=== PATIENT | male | born 1950 | race Caucasian/White ===

== ENCOUNTER 2017-09-27 08:12 | Emergency (ER) | payer MEDICARE ==
[2017-09-27 08:40] VITALS: BP 124/89
--- NOTE | 2017-09-27 09:05 | UC ---
Throat Pain/Nasal Sohail HPI - HPI Summary HPI Summary: 10 sinus pressure and right ear pain, denies fever, cough is productive - History of Current Complaint Chief Complaint: UCGeneralIllness Stated Complaint: SORE THROAT, CONGESTION Time Seen by Provider: 09/27/17 08:50 Hx Obtained From: Patient Onset/Duration: Sudden Onset, Lasting Days Severity: Severe Pain Intensity: 8 Cough: Productive Associated Signs & Symptoms: Positive: Dysphagia, Sinus Discomfort, Nasal Discharge - Allergies/Home Medications Allergies/Adverse Reactions: Allergies Allergy/AdvReac Type Severity Reaction Status Date / Time banana AdvReac Vomiting Verified 09/27/17 08:35 broccoli AdvReac Vomiting Verified 09/27/17 08:35 cauliflower AdvReac Vomiting Verified 09/27/17 08:35 strawberry AdvReac Vomiting Verified 09/27/17 08:35 tomato AdvReac Vomiting Verified 09/27/17 08:35 watermelon AdvReac Vomiting Verified 09/27/17 08:35 Home Medications: Home Medications Cetirizine* [ZyrTEC 10 MG TAB*] 10 mg PO DAILY 09/27/17 [History Confirmed 09/27] Naproxen Sodium 440 mg PO QAM 09/27/17 [History Confirmed 09/27/17] PMH/Surg Hx/FS Hx/Imm Hx Previously Healthy: Yes - Surgical History Surgical History: Yes Surgery Procedure, Year, and Place: Right TKA, 2016, [facility]; [facility] X2. right knee arthroscopy - Family History Known Family History: Positive: Cardiac Disease, Hypertension - Social History Alcohol Use: Rare Alcohol Amount: 3 PER WEEK Substance Use Type: None Smoking Status (MU): Current Some Day Smoker Type: Cigars Amount Used/How Often: SMOKED IN EARLY 20'S FOR 2 YEARS Have You Smoked in the Last Year: No - Immunization History Most Recent Influenza Vaccination: 2014 Most Recent Tetanus Shot: 2007 Most Recent Pneumonia Vaccination: HAS NOT HAD Review of Systems Constitutional: Negative Skin: Negative Eyes: Negative ENT: Sore Throat, Ear Ache Respiratory: Cough Cardiovascular: Negative Gastrointestinal: Negative Genitourinary: Negative Motor: Negative Neurovascular: Negative Musculoskeletal: Negative Neurological: Headache Psychological: Negative Is Patient Immunocompromised?: No All Other Systems Reviewed And Are Negative: Yes Physical Exam Triage Information Reviewed: Yes Appearance: Ill-Appearing, Pain Distress Vital Signs: Initial Vital Signs Temp 98.7 F 02/03/18 08:31 Pulse 92 09/27/17 08:31 Resp 16 09/27/17 08:31 BP 124/89 09/27/17 08:31 Pulse Ox 98 09/27/17 08:31 Vital Signs Reviewed: Yes Eyes: Positive: Conjunctiva Inflamed ENT: Positive: Pharyngeal erythema, Nasal congestion, Nasal drainage, TM bulging , TM dull - right Dental Exam: Normal Neck exam: Normal Neck: Positive: Supple, Nontender, No Lymphadenopathy Respiratory Exam: Normal Respiratory: Positive: Chest non-tender, Lungs clear, Normal breath sounds Cardiovascular Exam: Normal Cardiovascular: Positive: RRR, No Murmur, Pulses Normal Abdominal Exam: Normal Abdomen Description: Positive: Nontender, No Organomegaly, Soft Bowel Sounds: Positive: Present Musculoskeletal Exam: Normal Neurological Exam: Normal Psychological Exam: Normal Skin Exam: Normal Throat Pain/Nasal Course/Dx - Course Course Of Treatment: hx obtained, exam performed, meds reviewed, treated for sinusitis - Differential Dx/Diagnosis Provider Diagnoses: sinusitis. serous otitis media right Discharge - Discharge Plan Condition: Stable Disposition: HOME Prescriptions: Amoxicillin PO (*) [Amoxicillin 875 MG (*)] 875 mg PO BID #20 tab predniSONE TAB* [Deltasone TAB*] 40 mg PO DAILY #14 tab Patient Education Materials: Sinusitis (ED) Referrals: Mark Frost MD [Primary Care Provider] - Additional Instructions: 1. take the medication as prescribed. 2. Increase fluid intake and get plenty of rest 3. Ibuprofen and warm compresses to the sinuses for pain.
== END 2017-09-27 09:09 | disposition home or self-care (01) ==
LOC: UCCORT 08:12
DX: J32.9 Chronic sinusitis, unspecified (principal); H65.91 Unspecified nonsuppurative otitis media, right ear; Z72.89 Other problems related to lifestyle; Z72.0 Tobacco use
CPT/HCPCS: 99212; G0463

== ENCOUNTER 2019-08-27 07:45 | Inpatient (IN) | payer MEDICARE ==
[~2019-08-27 07:45] MED LIST: Buffered Lidocaine 1% SYRIN* 1 ML/SYRINGE INTRADERM ONE; Famotidine IV* 10 MG/ML 2 ML (20 mg) IV ONE; Gabapentin CAP(*) 400 MG PO ONE; Lactated Ringers 1000 ML Bag* 1,000 ML IV SCH; Tranexamic Acid 1,000 MG in NS 0.9% 50 ML* (outpatient use) IV SCH
[2019-08-27] MEDS ORDERED: ceFAZolin 2 GM PREMIX in ORs 2 GM/50 ML BAG ONE (07:46)
[2019-08-27] MEDS ORDERED: Gabapentin CAP(*) 400 MG PO ONE (07:46)
[2019-08-27] MEDS ORDERED: Buffered Lidocaine 1% SYRIN* 1 ML/SYRINGE INTRADERM ONE (07:46)
[2019-08-27] MEDS ORDERED: Famotidine IV* 10 MG/ML 2 ML (20 mg) ONE (07:46)
--- OUTSIDE RECORDS SUMMARY | 2019-08-27 07:48 | XMS REPORT | Continuity of Care Document ---
:1950 External Reference #:[id number] Author Name Leighton Jansen MD (transmitted by agent of provider Leticia Faulkner) Address [address] [place] [id number] Care Team Providers Name Role Phone Mark Frost III, MD - Internal Care Team Information [employer] Medicine Oscar Schreiber MD - Surgery Care Team Information [employer] Tender Problems Active Problems Provider Date Allergic rhinitis Mark Frost M.D. Onset: 12/08/2012 Benign localized hyperplasia of prostate Mark Frost M.D. Onset: 2012 Social History Type Date Description Comments Sex Unknown ETOH Use Occasionally consumes alcohol Tobacco Use Start: Unknown End: Patient is a former Quit in his 20s; 1/2 Unknown smoker ppd for a few years (+) occ cigar Smoking Status Reviewed: 07/12/19 Patient is a former Quit in his 20s; 1/2 smoker ppd for a few years (+) occ cigar Exercise Exercises regularly Type/Frequency Allergies, Adverse Reactions, Alerts Active Allergies Reaction Severity Comments Date NKDA 05/10/2014 Hay Fever 04/18/2015 Medications Active Medications SIG Qnty Indications Ordering Provider Date Ranitidine 150 Maximum one by mouth Unknown Strength twice a day 150mg Tablets Naproxen 1 tablet by mouth Unknown 250mg Tablets twice a day as needed pain, with foods History Medications Sildenafil Citrate use daily as 10tabs Mark Frost, 05/04/2019 - needed M.D. 07/11/2019 100mg Tablets Tadalafil 1 by mouth every 90tabs Mark Frost, 02/04/2019 - 5mg Tablets day M.D. 07/11/2019 Medications Administered in Office Medication SIG Qnty Indications Ordering Provider Date Depomedrol 40MG Mckinley Mejia M.D. 05/05/2019 Injection Depomedrol 80MG MONI Bobby 02/27/2015 Injection Depomedrol 80MG Coral Chan, MONI 11/28/2014 Injection Depomedrol 80MG Mckinley Mejia M.D. 08/29/2014 Injection Depomedrol 80MG MONI Bobby 05/09/2014 Injection Depomedrol 80MG Mckinley Mejia M.D. 02/09/2014 Injection Immunizations CPT Code Status Date Vaccine Lot # [id number] Given 06/07/2019 Influenza Virus Vaccine, Quadrivalent, Split, Preservative Free [id number] Given 06/17/2016 Fluzone High Dose 24597 Given 06/16/2014 Flu Vaccine Split Virus Preservative Free For Indiv 3Yr Older 60569 Given 04/25/2013 Zoster (Zostavax) [id number] Given 09/03/2012 Fluzone Vaccine 17400 Given 11/10/2007 Tdap - Tetanus/Diptheria/Acellular Pertussis [id number] Given 07/31/1998 Td (History By Patient) Vital Signs Date Vital Result Comment 07/12/2019 3:23pm Height 70 inches 5'10" Weight 248.00 lb Heart Rate 67 /min BP Systolic 122 mmHg BP Diastolic 78 mmHg Respiratory Rate 16 /min Body Temperature 98.2 F Pain Level 6 BMI (Body Mass Index) 35.6 kg/m2 05/24/2019 9:40am Height 70 inches 5'10" Weight 240.00 lb Heart Rate 74 /min BP Systolic 122 mmHg BP Diastolic 84 mmHg Respiratory Rate 16 /min Body Temperature 97.4 F Pain Level 5 BMI (Body Mass Index) 34.4 kg/m2 Results Description No Information Available Procedures Date Code Description Status 05/05/2019 24170 Inject/Drain Joint/Bursa Major W/O US Completed 09/27/2014 04802058 Colonoscopy Completed Medical Devices Description No Information Available Encounters Type Date Location Provider Dx Diagnosis Office Visit 05/24/2019 [facility] Mckinley Mejia M.D. M17.12 Unilateral primary 9:30a at [place] osteoarthritis, left knee S83.232D Complex tear of medial mensc, current injury, l knee, subs Office Visit 05/05/2019 2:00p [facility] Mckinley Mejia, S83.232A Complex tear at [place] of medial mensc, current injury, l knee, init Assessments Date Code Description Provider 07/12/2019 M25.562 Pain in left knee Leighton Jansen MD 07/12/2019 M17.12 Unilateral primary osteoarthritis, left Leighton Jansen MD knee 07/12/2019 M17.12 Unilateral primary osteoarthritis, left Leighton Jansen MD knee 07/12/2019 M25.562 Pain in left knee Leighton Jansen MD 05/24/2019 M17.12 Unilateral primary osteoarthritis, left Mckinley Mejia M.D. knee 05/24/2019 S83.232D Complex tear of medial meniscus, current Mckinley Mejia M.D. injury, left knee, subsequent encounter 05/05/2019 S83.232A Complex tear of medial meniscus, current Mckinley Mejia M.D. injury, left knee, initial encounter Plan of Treatment Future Appointment(s):07/29/2019 2:20 pm - Mark Frost M.D. at [facility] Internal [facility] - [facility]07/12/2019 - Leighton Jansen, MDM25.562 Pain in left kneeM17.12 Unilateral primary osteoarthritis, left kneeFollow up:Follow up : to ORM17.12 Unilateral primary osteoarthritis, left kneeFollow up:Follow up : to ORM25.562 Pain in left knee Functional Status Description No Information Available Mental Status Description No Information Available Referrals Description No Information Available
--- OUTSIDE RECORDS SUMMARY | 2019-08-27 07:48 | XMS REPORT | Continuity of Care Document ---
:1950 External Reference #:[id number] Author Name Leighton Jansen MD (transmitted by agent of provider Estella Moore ) Address [address] [place] [phone] Care Team Providers Name Role Phone Mark Frost III, MD - Internal Care Team Information [employer] Supervisor [phone] Medicine Oscar Schreiber MD - Surgery Care Team Information [employer] Supervisor [phone] Problems Active Problems Provider Date Allergic rhinitis Mark Frost M.D. Onset: 12/08/2012 Benign localized hyperplasia of prostate Mark Frost M.D. Onset: 2012 Social History Type Date Description Comments Sex Unknown ETOH Use Occasionally consumes alcohol Tobacco Use Start: Unknown End: Patient is a former Quit in his 20s; 1/2 Unknown smoker ppd for a few years (+) occ cigar Smoking Status Reviewed: 08/23/19 Patient is a former Quit in his 20s; 1/2 smoker ppd for a few years (+) occ cigar Exercise Exercises regularly prior to L knee sx Type/Frequency worsening Allergies, Adverse Reactions, Alerts Active Allergies Reaction Severity Comments Date NKDA 05/10/2014 Hay Fever 04/18/2015 Medications Active Medications SIG Qnty Indications Ordering Provider Date Famotidine 1 by mouth 90tabs Mark Frost, 07/29/2019 40mg Tablets every day M.D. Naproxen 1 tablet by Unknown 250mg Tablets mouth twice a day as needed pain, with foods Viagra use as needed Unknown 100mg Tablets daily Acetaminophen 2 every 6 hours Unknown 500mg Tablets as needed Zyrtec Allergy Unknown Childrens 10mg Tablets Dispers History Medications Sildenafil Citrate use daily as 10tabs Mark LazarusJoe Frost, 05/04/2019 - needed Maribel 07/11/2019 100mg Tablets Medications Administered in Office Medication SIG Qnty Indications Ordering Provider Date Depomedrol 40MG Mckinley Mejia M.D. 05/05/2019 Injection Depomedrol 80MG HUBER BobbyC 02/27/2015 Injection Depomedrol 80MG MONI Bobby 11/28/2014 Injection Depomedrol 80MG Mckinley Mejia M.D. 08/29/2014 Injection Depomedrol 80MG MONI Bobby 05/09/2014 Injection Depomedrol 80MG Mckinley Mejia M.D. 02/09/2014 Injection Immunizations CPT Code Status Date Vaccine Reaction Lot # [id number] Given 08/04/2019 Tdap - No immediate reaction [id number] Tetanus/Diptheria/Acellular Pertussis 69649 Given 07/29/2019 Pneumococcal Conjugate shot tolerated well, no [id number] Vaccine 13 Valent For immediate reaction Intramuscular Use 28669 Given 06/07/2019 Influenza Virus Vaccine, Quadrivalent, Split, Preservative Free 64782 Given 06/17/2016 Fluzone High Dose 40351 Given 06/16/2014 Flu Vaccine Split Virus Preservative Free For Indiv 3Yr Older 07018 Given 04/25/2013 Zoster (Zostavax) Q2038 Given 09/03/2012 Fluzone Vaccine 15613 Given 11/10/2007 Tdap - [id number] Tetanus/Diptheria/Acellular Pertussis 94986 Given 07/31/1998 Td (History By Patient) Vital Signs Date Vital Result Comment 08/23/2019 3:19pm Height 70 inches 5'10" Weight 257.00 lb Heart Rate 76 /min BP Systolic 126 mmHg BP Diastolic 72 mmHg Respiratory Rate 12 /min Body Temperature 98.7 F Pain Level 7 BMI (Body Mass Index) 36.9 kg/m2 07/29/2019 2:30pm Height 70 inches 5'10" Weight 263.00 lb Heart Rate 96 /min BP Systolic Sitting 143 mmHg BP Diastolic Sitting 95 mmHg BP Systolic Recheck 149 mmHg BP Diastolic Recheck 90 mmHg BMI (Body Mass Index) 37.7 kg/m2 Results Test Acquired Date Facility Test Result H/L Range Note CBC Auto 08/23/2019 [facility] White Blood 8.6 10^3/uL Normal 3.5-10.[address] [place] [address] [phone] Red Blood Count 5.22 10^6/uL Normal 4.18-5.48 Hemoglobin 15.5 g/dL Normal 14.0-18.0 Hematocrit 45 % Normal 42-52 Mean Corpuscular Volume 86 fL Normal 80-94 Mean Corpuscular Hemoglobin 30 pg Normal 27-31 Mean Corpuscular HGB Conc 35 g/dL Normal 31-36 Red Cell Distribution Width 13 % Normal 10-15 Platelet Count 314 10^3/uL Normal 150-450 Mean Platelet Volume 8.9 fL Normal 7.4-10.4 Abs Neutrophils 4.8 10^3/uL Normal 1.5-7.7 Abs Lymphocytes 2.8 10^3/uL Normal 1.0-4.8 Abs Monocytes 0.6 10^3/uL Normal 0-0.8 Abs Eosinophils 0.3 10^3/uL Normal 0-0.6 Abs Basophils 0.0 10^3/uL Normal 0-0.2 Abs Nucleated RBC 0.1 10^3/uL Granulocyte % 55.4 % Lymphocyte % 33.0 % Monocyte % 7.2 % Eosinophil % 3.8 % Basophil % 0.6 % Nucleated Red Blood Cells % 0.7 Urinalysis Profile 08/23/2019 [facility] Urine Color Yellow [address] [place] [address] [phone] Urine Appearance Clear Urine Specific Lyerly 1.024 Normal 1.010-1.030 Urine pH 5.0 Normal 5-9 Urine Urobilinogen Positive Abnormal Negative Urine Ketones Negative Negative Urine Protein Negative Negative Urine Leukocytes Negative Negative Urine Blood Negative Negative Urine Nitrite Negative Negative Urine Bilirubin Negative Negative Urine Glucose Negative Negative Inr/Protime 08/23/2019 [facility] Inr 1.04 Normal 0.82-1.[address] [place] [address] [phone] Laboratory test 08/23/2019 [facility] Partial 35.7 Normal 26.0 -38.0 finding [address] [facility] [place] [address] Time PTT [phone] Comp Metabolic 08/23/2019 [facility] Sodium 138 mmol/L Normal 135-145 Panel [address] [place] [address] [phone] Potassium 4.2 mmol/L Normal 3.5-5.0 Chloride 103 mmol/L Normal 101-111 Co2 Carbon Dioxide 25 mmol/L Normal 22-32 Anion Gap 10 mmol/L Normal 2-11 Glucose 95 mg/dL Normal 70-100 Blood Urea Nitrogen 24 mg/dL Normal 6-24 Creatinine 0.85 mg/dL Normal 0.67-1.17 BUN/Creatinine Ratio 28.2 High 8-20 Calcium 9.8 mg/dL Normal 8.6-10.3 Total Protein 7.3 g/dL Normal 6.4-8.9 Albumin 4.7 g/dL Normal 3.2-5.2 Globulin 2.6 g/dL Normal 2-4 Albumin/Globulin Ratio 1.8 Normal 1-3 Total Bilirubin 0.80 mg/dL Normal 0.2-1.0 Alkaline Phosphatase 53 U/L Normal 34-104 Alt 41 U/L Normal 7-52 Ast 32 U/L Normal 13-39 Egfr Non- 89.4 >60 Egfr 108.1 >60 2 Lipid Profile 07/27/2019 [facility] Triglycerides 185 mg/dL 3 (Trig/Chol/HDL) [address] [place] [address] [phone] Cholesterol 177 mg/dL 4 HDL Cholesterol 36.4 mg/dL 5 LDL Cholesterol 104 mg/dL 6 Basic Metabolic 07/27/2019 [facility] Sodium 138 mmol/L Normal 135-145 Panel [address] [place] [address] [phone] Potassium 4.5 mmol/L Normal 3.5-5.0 Chloride 102 mmol/L Normal 101-111 Co2 Carbon Dioxide 27 mmol/L Normal 22-32 Anion Gap 9 mmol/L Normal 2-11 Glucose 155 mg/dL High 70-100 Blood Urea Nitrogen 19 mg/dL Normal 6-24 Creatinine 0.88 mg/dL Normal 0.67-1.17 BUN/Creatinine Ratio 21.6 High 8-20 Calcium 9.8 mg/dL Normal 8.6-10.3 Egfr Non- 85.9 >60 Egfr 103.9 >60 7 1 Standard intensity warfarin therapeutic range: 2.0-3.0 High intensity warfarin therapeutic range: 2.5-3.5 2 Because ethnic data is not always readily available, this report includes an eGFR for both -Americans and non- Americans. The National Kidney Disease Education Program (NKDEP) does not endorse the use of the MDRD equation for patients that are not between the ages of 18 and 70, are , have extremes of body size, muscle mass, or nutritional status, or are non- or non-. According to the National Kidney Foundation, irrespective of diagnosis, the stage of the disease is based on the level of kidney function: Stage Description GFR(mL/min/1.73 m(2)) 1 Kidney damage with normal or decreased GFR 90 2 Kidney damage with mild decrease in GFR 60-89 3 Moderate decrease in GFR 30-59 4 Severe decrease in GFR 15-29 5 Kidney failure <15 (or dialysis) 3 Desirable: <150 Borderline High: 150-199 High: 200-499 Very High: >500 4 Desirable: <200 Borderline High: 200-239 High: >239 5 Low: <40 Desirable: 40-60 High: >60 6 Desirable: <100 Near Optimal: 100-129 Borderline High: 130-159 High: 160-189 Very High: >189 7 Because ethnic data is not always readily available, this report includes an eGFR for both -Americans and non- Americans. The National Kidney Disease Education Program (NKDEP) does not endorse the use of the MDRD equation for patients that are not between the ages of 18 and 70, are , have extremes of body size, muscle mass, or nutritional status, or are non- or non-. According to the National Kidney Foundation, irrespective of diagnosis, the stage of the disease is based on the level of kidney function: Stage Description GFR(mL/min/1.73 m(2)) 1 Kidney damage with normal or decreased GFR 90 2 Kidney damage with mild decrease in GFR 60-89 3 Moderate decrease in GFR 30-59 4 Severe decrease in GFR 15-29 5 Kidney failure <15 (or dialysis) Procedures Date Code Description Status 07/29/2019 86963 EKG Tracing & Interpretation Completed 05/05/2019 89594 Inject/Drain Joint/Bursa Major W/O US Completed 09/27/2014 [id number] Colonoscopy Completed Medical Devices Description No Information Available Encounters Type Date Location Provider Dx Diagnosis Office Visit 05/24/2019 [facility] Mckinley Mejia M.D. M17.12 Unilateral primary 9:30a at [place] osteoarthritis, left knee S83.232D Complex tear of medial mensc, current injury, l knee, subs Office Visit 05/05/2019 2:00p [facility] Mckinley Mejia, S83.232A Complex tear at [place] Baldev.Viry of medial mensc, current injury, l knee, init Assessments Date Code Description Provider 08/23/2019 M17.12 Unilateral primary osteoarthritis, left Leighton Jansen MD knee 07/29/2019 Z00.00 Encounter for general adult medical Mark Frost M.D. examination without abnormal findings 07/29/2019 M17.12 Unilateral primary osteoarthritis, left Mark Frost M.D. knee 07/29/2019 Z96.651 Presence of right artificial knee joint Mark Frost M.D. 07/29/2019 J30.9 Allergic rhinitis, unspecified Mark Frost M.D. 07/29/2019 N40.1 Benign prostatic hyperplasia with lower Mark Frost M.D. urinary tract symptoms 07/29/2019 K21.9 Gastro-esophageal reflux disease without Mark Frost M.D. esophagitis 07/29/2019 Z23 Encounter for immunization Mark Frost M.D. 07/12/2019 M25.562 Pain in left knee Leighton Jansen MD 07/12/2019 M17.12 Unilateral primary osteoarthritis, left Leighton Jansen MD knee 07/12/2019 M17.12 Unilateral primary osteoarthritis, left Leighton Jansen MD knee 07/12/2019 M25.562 Pain in left knee Leighton Jansen MD 05/24/2019 M17.12 Unilateral primary osteoarthritis, left Mckinley Mejia M.D. knee 05/24/2019 S83.232D Complex tear of medial meniscus, anish Mejia M.D. injury, left knee, subsequent encounter 05/05/2019 S83.232A Complex tear of medial meniscus, current Dirk Roberto, M.D. injury, left knee, initial encounter Plan of Treatment Future Appointment(s):09/16/2019 8:15 am - Leighton Jansen MD at [facility] at Bammfz1208/27/2019 10:00 am - MONI Zabala at [facility] at Yzygpq4108/27/2019 10:00 am - Leighton Jansen MD at [facility] at Uspwob4208/23/2019 - Leighton Jansen, [facility]17.12 Unilateral primary osteoarthritis, left kneeFollow up:Follow up: to OR Functional Status Description No Information Available Mental Status Description No Information Available Referrals Description No Information Available
[2019-08-27] MEDS ORDERED: Midazolam* 1 MG/ML 5 ML VIAL (5 MG) ONE (09:04)
[2019-08-27] MEDS ORDERED: fentaNYL* 50 MCG/ML 2 ML VIAL (100 MCG VIAL) ONE ×2 (09:04→09:55)
[2019-08-27] MEDS ORDERED: Bupivacaine 0.25% EPI 200,000* 30 ML SDV ONE ×2 (09:41→10:41)
[2019-08-27] MEDS ORDERED: Propofol* 500 MG/50 ML BTL ONE (10:05)
[2019-08-27] MEDS ORDERED: ROPIVACAINE 5 MG/ML 30 ML BTL (0.5%) ONE (10:15)
[2019-08-27] MEDS ORDERED: Propofol* 10 MG/ML 20 ML BTL ONE (12:38)
[2019-08-27] MEDS ORDERED: fentaNYL* 50 MCG/ML 2 ML VIAL (100 MCG VIAL) IV PRN (13:07)
[2019-08-27] MEDS ORDERED: Naloxone* 0.4 MG/ML 1 ML VIAL IV PRN (13:07)
[2019-08-27] MEDS ORDERED: Ondansetron INJ* 2 MG/ML VIAL IV PRN ×2 (13:07→13:10)
[2019-08-27] MEDS ORDERED: traMADol TAB* 50 MG PO PRN (13:10)
[2019-08-27] MEDS ORDERED: oxyCODONE/Acetamin 5/325 MG* TAB PO PRN (13:10)
[2019-08-27] MEDS ORDERED: Morphine INJ* 2 MG/ML 1 ML SYRINGE (TWO MG - NEW SYRINGE VERSION) IV PRN (13:10)
[2019-08-27] MEDS ORDERED: diPHENhydraMINE PO* 25 MG PO PRN (13:10)
[2019-08-27] MEDS ORDERED: Temazepam CAP* 15 MG PO PRN (13:10)
[2019-08-27] MEDS ORDERED: Magnesium Hydroxide LIQ* 30 ML UDC PO PRN (13:10)
[2019-08-27] MEDS ORDERED: diPHENhydraMINE IV* 50 MG/ML 1 ml VIAL (BENADRYL) IV PRN (13:10)
[2019-08-27] MEDS ORDERED: Polyethylene Glycol 3350* 17 GM PACKET PO PRN (13:10)
[2019-08-27] MEDS ORDERED: Ondansetron ODT TAB* 4 MG PO PRN (13:10)
[2019-08-27] MEDS ORDERED: Pantoprazole TAB * 40 MG TAB PO PRN (13:21)
[2019-08-27] MEDS ORDERED: ceFAZolin 1 GM ADVAN(*) 1 GM in NS 0.9% 50 ML* 50 ML IVPB SCH (14:00)
[2019-08-27] MEDS: Lactated Ringers 1000 ML Bag* 1,000 ML IV SCH (14:43)
[2019-08-27] MEDS: oxyCODONE/Acetamin 5/325 MG* TAB PO PRN ×2 (15:12→21:15)
[2019-08-27] MEDS ORDERED: Morphine INJ* 2 MG/ML 1 ML SYRINGE (TWO MG - NEW SYRINGE VERSION) ONE (16:39)
[2019-08-27] MEDS: Cyclobenzaprine TAB* 10 MG PO PRN (16:41)
[2019-08-27] MEDS ORDERED: Morphine INJ* 2 MG/ML 1 ML SYRINGE (TWO MG - NEW SYRINGE VERSION) IV ONE (17:00)
[2019-08-27] MEDS: oxyCODONE TAB* 5 MG TAB PO PRN (17:19)
[2019-08-27] MEDS: ceFAZolin 1 GM ADVAN(*) 1 GM in NS 0.9% 50 ML* 50 ML IVPB SCH (18:23)
[2019-08-27] MEDS ORDERED: Ketorolac INJ* 30 MG/ML 1 ML VIAL IV PUSH ONE (18:31)
[2019-08-27] MEDS: Docusate CAP* 100 MG PO SCH (21:15)
[2019-08-27] MEDS: Magnesium Hydroxide LIQ* 30 ML UDC PO SCH (21:15)
[2019-08-27] MEDS: Morphine INJ* 4 MG/ML 1 ML SYRINGE (NEW SYRINGE VERSION) IV PRN (21:16)
[2019-08-27] MEDS: Acetaminophen TAB* 325 MG PO SCH (21:17)
[2019-08-28] MEDS: oxyCODONE TAB* 5 MG TAB PO PRN ×4 (01:10→21:05)
[2019-08-28] MEDS: Lactated Ringers 1000 ML Bag* 1,000 ML IV SCH (01:10)
[2019-08-28] MEDS: ceFAZolin 1 GM ADVAN(*) 1 GM in NS 0.9% 50 ML* 50 ML IVPB SCH ×2 (01:34→09:47)
[2019-08-28] MEDS: Acetaminophen TAB* 325 MG PO SCH ×3 (05:58→21:08)
[2019-08-28] MEDS: oxyCODONE/Acetamin 5/325 MG* TAB PO PRN ×3 (06:01→17:32)
[2019-08-28] MEDS: Cyclobenzaprine TAB* 10 MG PO PRN (06:01)
[2019-08-28 07:12] LABS: Hematocrit 38 % (42-52); Hemoglobin 13.2 g/dL (14.0-18.0); Mean Platelet Volume 8.9 fL (7.4-10.4); Platelet Count 263 10^3/uL (150-450)
[2019-08-28 07:26] LABS: BUN/Creatinine Ratio 24.7 (8-20); Calcium 8.6 mg/dL (8.6-10.3); EGFR African American 102.6 (>60); EGFR Non-African American 84.8 (>60); Potassium 3.9 mmol/L (3.5-5.0)
--- NOTE | 2019-08-28 08:26 | PN ---
Progress Note - Progress Note Date of Service: 08/28/19 SOAP: Subjective: Pt is doing well. Having pain but pain medication is helping. Denies F/C, CP/ SOB or calf pain Objective: PE- 69 y/o WDWN M NAD LLE- dressing c/d/i, able to DF/PF ankle, calf soft NT, +2 Dp pulse, SILT distally, brisk cap refill Vital Signs Temp Pulse Resp BP Pulse Ox 99.2 F 97 18 136/82 95 08/28/19 07:28 08/28/19 07:28 08/28/19 08:06 08/28/19 07:28 08/28/19 07:28 Laboratory Results - last 24 hr 08/28/19 08/28/19 06:30 06:30 Hgb 13.2 L Hct 38 L Plt Count 263 MPV 8.9 Sodium 134 L Potassium 3.9 Chloride 100 L Carbon Dioxide 26 Anion Gap 8 BUN 22 Creatinine 0.89 Est GFR ( Amer) 102.6 Est GFR (Non-Af Amer) 84.8 BUN/Creatinine Ratio 24.7 H Glucose 157 H Calcium 8.6 Assessment: POD 1 S/P Left total knee arthroplasty Plan: WBAT Cont pain control PT/OT Eliquis for dvt prophylaxis Possible DC tomorrow vs Friday depending on pain control and how therapy goes
[2019-08-28] MEDS: Morphine INJ* 4 MG/ML 1 ML SYRINGE (NEW SYRINGE VERSION) IV PRN (08:52)
[2019-08-28] MEDS: Apixaban* 2.5 MG TAB PO SCH ×2 (08:55→21:06)
[2019-08-28] MEDS: Magnesium Hydroxide LIQ* 30 ML UDC PO SCH ×2 (08:55→21:06)
[2019-08-28] MEDS: Vitamin THERAPEUTIC TAB PO SCH (08:55)
[2019-08-28] MEDS: Docusate CAP* 100 MG PO SCH ×2 (08:55→21:05)
[2019-08-28] MEDS: oxyCODONE SR TAB(*) 10 MG TAB.SR PO SCH ×2 (10:15→21:05)
--- NOTE | 2019-08-28 22:03 | OP ---
OPERATIVE REPORT: DATE OF OPERATION: 08/27/19 DATE OF : 50 SURGEON: Leighton Jansen MD CUE WORKER: VENANCIO Hua A physician assistant professor of life sciences was required for the length of the procedure for assistance with patient positi oning, retraction, and closure. NurseAnn also was assisting, second assist. ANESTHESIOLOGIST: Dr. Cheng Fields. ANESTHESIA: Epidural anesthesia, adductor canal block regional anesthesia, local anesthesia consisti ng of 60 cc of Marcaine 0.25% with epinephrine. PRE-OP DIAGNOSIS: Left knee osteoarthritis. POST-OP DIAGNOSIS: Left knee osteoarthritis. OPERATIVE PROCEDURE: Left total knee arthroplasty. ANTIBIOTICS: Ancef 2 g IV. IV FLUIDS: See Anesthesia note. URINE OUTPUT: See Anesthesia note. CHVW-LJ-FDMZ TIME: 138 minutes. TOURNIQUET TIME: 128 minutes at 300 mmHg, left thigh. SPECIMEN: Bone and articular cartilage, left knee. IMPLANTS: DePuy Adis and Adis Attune, cruciate retaining total knee arthroplasty, cemented. F emur size 8. Tibia size 7. Patella size 41 mm. Polyethylene insert size 8 mm. Palacos cement utili zed. ESTIMATED BLOOD LOSS: Minimal. COMPLICATIONS: None. INDICATIONS FOR PROCEDURE: The patient is a 69-year-old man, with a prior history, distant past of a right total knee arthroplasty, who presented to me as a referral from partner with left knee pain se condary to osteoarthritis mostly in the medial compartment. The patient had tried nonoperative manag ement and would like to proceed forward with operative management, knee arthroplasty surgery. Discussed risks and potential complications of surgery. DESCRIPTION OF PROCEDURE: In preoperative holding, the patient signed a written consent. Operative extremity was marked in preoperative holding. In preoperative holding and in the operating room, Anesthesia performed a variety of blocks. One of them was either an epidural or a spinal and the other a regional adductor canal block. The patient was brought back to the operating room and placed supine on the operating room table. A bump was placed under the left hemipelvis. A tourniquet was placed about the left proximal thigh. T he left lower extremity was prepped and draped. Surgical time-out was performed. Esmarch was applie d and the tourniquet was elevated to 300 mmHg. I should note that prior to the prep and drape, a bladder catheter, Good, was inserted. That was re moved at the conclusion of the procedure after the dressing was applied. After the tourniquet was elevated, the skin incision was made. Anterior longitudinal skin incision f rom 3 fingerbreadths proximal to the proximal pole of patella to the distal end of the tibial tubercl e. I made the skin incision slightly medial than I do typically slightly medial to the midline, to a void placing the incision directly through a small skin lesion, consistent with a psoriasis skin lesi on that the patient states he has had chronically. I changed knives and dissected down to the extensor mechanism. I used scissors to release a subcutan eous tissue superficial to the quadriceps tendon. I used feathering strokes to reveal nicely the ext ensor mechanism. I marked and then made by medial parapatellar arthrotomy incision. When the knee f lexed, I continued that down through the anterior horn of the medial meniscus. With the knee extended, I released capsule off the anterior aspect of the medial tibial plateau and l ateral tibial plateau with Bovie electrocautery. With an osteotomy, I released medial capsule off th e medial tibial plateau. Partially, I everted patella and removed much of the fat from the undersurf mehran of the patellar tendon. Released some lateral synovial fold adjacent to lateral patellofemoral l igament. I used Bovie electrocautery to release the synovium in the suprapatellar pouch. Significan t arthritic change noted about the medial compartment, full thickness loss of articular cartilage. N o large osteophytes encountered during this case. Everted patella and flexed the knee up to 90 degrees. Cut and then removed the ACL ligament. Marked the center spot of the femur and then reamed the femur with a drill. I irrigated the femoral canal and then aspirated. I placed my distal femoral cutting guide. I placed it to 5 degrees of valgus an d 9 mm of resection. I used an oscillating saw after having placed retractors. I then sized the femur. Sized it to a size 8. I placed 4-in-1 cutting block. Cut anteriorly with a n oscillating saw. Confirmed that that cut worked. It was flushed with the anterior aspect of the f emoral shaft, but there is absolutely no notching. I placed 2 additional screws through the 4-in-1 c utting guide and then made the other 3 cuts of the distal femur. I placed my tibial external alignment guide. Set it to 7 degrees of posterior slope cut centralized distally. Given the relatively well-aligned knee in the coronal plane on the preoperative imaging, I removed 6 mm off the low side on the medial tibial plateau. I pinned my cutting guide, confirmed it s orientation and then used an oscillating saw to cut off a bone block. I was careful not to cut too far posteriorly for neurovascular structures as well as the PCL. I would say the amount of tibia re moved was larger than normal especially on the lateral side, although I liked the orientation of my c ut. I placed laminar spreaders. I removed medial and then lateral meniscus. Removed a couple of small b kamryn fragments. I placed dog bone block and confirmed the equivalence of the flexion and extension ga ps. Notched my anterior chamfer cut and then placed a femoral trial. Drilled through it. I next placed a trial tibia with insert. Looked at my flexion and extension gaps, I thought the flexion gap was sl ightly tighter than the extension gap and so I wanted looking about the posterior aspect of the tibia and found a tiny bit of bone that could still be removed to make my cut flush posteriorly. I wanted to prepare the tibia next, but the instruments, some pins were not yet available, so I proce eded to the patella. I measured the patella to be 27 mm in depth. I used a freehand technique to re move undersurface of the patella until was just a greater than 14 mm in depth. I sized it to a 41 mm and drilled holes through it. I removed some excess patella laterally with a rongeur after placing a trial of patellar button. I next placed 20 cc of local anesthetic into the posterior capsule, Marcaine 0.25% with epinephrine. I should note that there was not much bleeding at all during this case. With the appropriate instrumentation available, I excised the tibia to a size 7. I pinned my guide a nd then reamed through it and punched through it. I next placed trial components. I trialed and found my flexion and extension gaps to be perfectly sy mmetric. Incredibly nice full range of motion. There appeared to be a little bit of increased laxit y laterally. I thought that I would be placing either an 8 or a 10 mm polyethylene at final implanta tion. Irrigation with pulsatile lavage. Plugged up femoral canal with some bone from my anterior chamfer c ut. Gloves were changed, Palacos cement was mixed, final implants were opened. Applied cement to im plants and to bone, applied tibial implant and femoral implant and 8 mm trial insert. Applied patell a. Allowed cement to hard. When cement was almost fully hardened, I irrigated. After cement had fu lly hardened, I trialed with an 8 mm and then 10 mm. I felt the tightness of the MCL and LCL, ranged the knee and stressed it in the coronal plane and decided ultimately on the 8 mm insert. Applied fi nal insert. I irrigated the knee generously. The knee range of motion was 0 to over 120 degrees of flexion comfortably. With the knee flexed to 30 degrees, I closed the medial parapatellar arthrotomy with npfsli-oh-yxoll stitches using Ethibond 1 suture as well as several Vicryl 0 sutures. Then, dropped tourniquet. Leighann sed subcutaneous tissue with buried simple stitches using Vicryl 2.0 suture. Closure of the skin wit h loly. I should state that with closing, I placed much local anesthetic into the medial and lateral capsule as well as into the quadriceps tendon and muscle and about the subcutaneous tissue about the skin inc ision. Xeroform, 4x4s, ABD, sterile Webril, Mehran bandage from foot to proximal groin. Cooling unit. The jory ent was awakened, extubated, and transferred to the PACU. DISPOSITION: The patient was admitted to the hospital postoperatively for oral and IV pain control, physical therapy, and medical management. The patient had x-rays in the PACU, which showed excellent alignment of all bone cuts and excellent placement of hardware. No fracture. The patient was to [facility] physical therapy on the day of surgery and his pain was to be controlled with oral and IV pain me dication. [id number]/[id number] #: [id number]
[2019-08-29] MEDS: oxyCODONE/Acetamin 5/325 MG* TAB PO PRN ×4 (03:34→19:51)
[2019-08-29] MEDS: Acetaminophen TAB* 325 MG PO SCH ×3 (04:51→21:49)
[2019-08-29 05:29] LABS: Hematocrit 36 % (42-52); Hemoglobin 12.6 g/dL (14.0-18.0); Mean Platelet Volume 8.5 fL (7.4-10.4); Platelet Count 242 10^3/uL (150-450)
[2019-08-29] MEDS: oxyCODONE SR TAB(*) 10 MG TAB.SR PO SCH ×2 (08:10→21:35)
[2019-08-29] MEDS: Apixaban* 2.5 MG TAB PO SCH ×2 (08:10→21:35)
[2019-08-29] MEDS: Docusate CAP* 100 MG PO SCH ×2 (08:10→21:13)
[2019-08-29] MEDS: Magnesium Hydroxide LIQ* 30 ML UDC PO SCH ×2 (08:10→21:13)
[2019-08-29] MEDS: Vitamin THERAPEUTIC TAB PO SCH (08:10)
--- NOTE | 2019-08-29 09:53 | PN ---
Progress Note - Progress Note Date of Service: 08/29/19 SOAP: Subjective: Pain better, but still limited in PT and painful. Objective: LLE: - Dressing c/d/i - NVID Selected Entries 08/27/19 08/28/19 08/28/19 23:28 03:55 07:28 Temperature 100.1 F 98.3 F 99.2 F Pulse Rate Respiratory Rate Blood Pressure (mmHg) O2 Sat by Pulse Oximetry 08/28/19 08/28/19 08/28/19 11:24 16:04 20:26 Temperature 98.2 F 98.7 F 98.1 F Pulse Rate Respiratory Rate Blood Pressure (mmHg) O2 Sat by Pulse Oximetry 08/28/19 08/29/19 08/29/19 23:39 03:25 08:19 Temperature 98.1 F 97.9 F 99.4 F Pulse Rate 99 Respiratory 16 Rate Blood Pressure 140/88 (mmHg) O2 Sat by Pulse 98 Oximetry Laboratory Tests 08/28/19 08/29/19 06:30 05:10 Hgb 13.2 L 12.6 L Assessment: POD 2 L TKA Plan: - Eliquis - Pain control - PT - Dispo planning- likely to home 08/30/19 - Dressing change on 08/30/19 - Incentive spirometer use encourage to help prevent atelectasis!
[2019-08-29] MEDS: oxyCODONE TAB* 5 MG TAB PO PRN (11:46)
[2019-08-29] MEDS ORDERED: Bisacodyl SUPP* 10 MG SUPP PR PRN (13:10)
[2019-08-30] MEDS: Acetaminophen TAB* 325 MG PO SCH (04:19)
[2019-08-30] MEDS: oxyCODONE/Acetamin 5/325 MG* TAB PO PRN ×2 (04:52→11:34)
[2019-08-30 05:38] LABS: Hematocrit 35 % (42-52); Hemoglobin 12.2 g/dL (14.0-18.0); Mean Platelet Volume 8.4 fL (7.4-10.4); Platelet Count 242 10^3/uL (150-450)
[2019-08-30] MEDS: oxyCODONE TAB* 5 MG TAB PO PRN (07:19)
[2019-08-30] MEDS: Vitamin THERAPEUTIC TAB PO SCH (07:19)
[2019-08-30] MEDS: Apixaban* 2.5 MG TAB PO SCH (07:19)
[2019-08-30] MEDS: oxyCODONE SR TAB(*) 10 MG TAB.SR PO SCH (07:20)
[2019-08-30] MEDS: Docusate CAP* 100 MG PO SCH (07:21)
[2019-08-30 07:52] VITALS: BP 132/81
--- NOTE | 2019-08-30 11:09 | DS ---
Orthopedic Discharge Summary - Discharge Summary Date of Admission:08/27/19 Date of Discharge: 08/30/2019 Date of Surgery: 08/27/2019 Attending Orthopedic Provider: Dr. Jansen Pre-operative Diagnosis: Left knee osteoarthritis Operative Procedure: Left total knee arthroplasty Disposition of Patient: Home Condition of Patient: Good History: CHELI SIMON is a 69 year old M with years of increasingly severe left knee pain. Patient has failed conservative management and has elected to undergo a left total knee replacement Hospital Course: CHELI was admitted to [facility] on 08/27/19. Patient underwent a left total knee replacement without complication followed by a brief recovery in PACU and transfer to the Short Stay Surgical Unit in stable condition. Physical therapy and occupational therapy also participated in this patients care. Post-op day 1: patient was alert and in no acute distress. Dressing was clean, dry and intact. Operative extremity dorsiflexion and plantarflexion intact, sensation intact to light touch distally, DP2+. Post- op day two: Dressing was clean, dry and intact. Operative extremity dorsiflexion and plantarflexion intact, sensation intact to light touch distally , DP2+. POD 3: dressing was changed, incision was clean, dry and intact. Patient was deemed to be medically and orthopedically stable for discharge. Physical therapy goals were met. Home Medications Medication Instructions Recorded Confirmed Type Cetirizine* [ZyrTEC 10 MG TAB*] 10 mg PO QAM PRN 09/27/17 08/27/19 History Naproxen Sodium [Naproxen 220 mg] 440 mg PO BID 09/27/17 08/27/19 History Acetaminophen [Acetaminophen Extra 500 - 1,000 mg PO Q6H PRN 08/23/19 08/27/19 History Strength] Omeprazole CAP (NF) [Prilosec CAP* 20 mg PO QAM PRN 08/23/19 08/27/19 History 20 MG] Sildenafil Citrate [Viagra] 100 mg PO .MONTHLY 08/23/19 08/27/19 History Discharge Instructions following Orthopedic Surgery: Activity: * Weight Bearing as tolerated * Continue physical therapy and occupational therapy exercises as shown Wound care: * OK to shower on post-op day 3, no bathing, swimming, or submerging wound. * Use gentle soap, pat dry. Cover with gauze, RUPINDER wrap or tape. * Visiting home nurse to do wound checks. Call Orthopedic office for: * Increased drainage * Redness * Increased pain * Fever Go to ER with shortness of breath or chest pain. Diet: * Regular diet * Increase fluids and fiber to prevent constipation. * Continue to use stool softeners, call office if no bowel motion within 48 hours. Medications See Home Medication List in your packet for medications that you should take after discharge. DVT Prophylaxis: Eliquis Dosin.5 mg, 1 tab every 12 hours x 30 days Pain Control: Percocet Dosin/325 mg 1-2 tabs by mouth every 4-6 hours as needed for pain. Maximum of 10 tabs per day. Please note that Percocet contains Tylenol (acetaminophen). Maximum daily dose of Tylenol is 4000 mg from all sources. Antibiotics are required prior to any dental work. FOLLOW UP: Follow up with Dr. Jansen Within 10-14 days, call for appointment Please call our office with any questions or concerns ([phone])
== END 2019-08-30 12:15 | disposition home health service (06) | DRG 470 ==
LOC: AA 07:45 → SSU 14:30
PROVIDERS: ADMIT Orthopaedic Surgery; ATTEND Orthopaedic Surgery
PROC: 0SRD0J9 Replacement of Left Knee Joint with Synthetic Substitute, Cemented, Open Approach (ICD-10-PCS; principal; 2019-08-27 09:30)
DX: M17.12 Unilateral primary osteoarthritis, left knee (principal); K25.9 Gastric ulcer, unspecified as acute or chronic, without hemorrhage or perforation; N40.0 Benign prostatic hyperplasia without lower urinary tract symptoms; L40.9 Psoriasis, unspecified; J30.9 Allergic rhinitis, unspecified; Z96.651 Presence of right artificial knee joint; Z79.1 Long term (current) use of non-steroidal anti-inflammatories (NSAID); Z79.899 Other long term (current) drug therapy; Z87.891 Personal history of nicotine dependence; S83.242D Other tear of medial meniscus, current injury, left knee, subsequent encounter
CPT/HCPCS: 36415; 80048; 85014; 85018; 85049; A9270-GY; J0690; J1885; J2250; J2270; J2704; J2795; J3010